=== PATIENT | female | born 2000 | race Caucasian/White ===

== ENCOUNTER 2024-03-28 07:58 | Observation (INO) | payer SELFPAY ==
[2024-03-28] MEDS ORDERED: Acetaminophen 325 MG TAB PO PRN (09:18)
[2024-03-28] MEDS ORDERED: Ondansetron PF 4 MG/2 ML Vial IVP PRN (09:18)
[2024-03-28] MEDS ORDERED: traMADol HCl 50 MG TAB PO PRN (09:18)
[2024-03-28 10:08] LABS: CRP,High Sensitivity (Inhouse) 0.87 mg/dL (< or = 0.5)
[2024-03-28 10:09] LABS: ALT (SGPT) 703 U/L (8-55); AST (SGOT) 336 U/L (5-34); Albumin 3.5 g/dL (3.5-5.0); Alkaline Phosphatase 499 U/L (40-110); Anion Gap 16 mmol/L (10-20); BUN (Urea Nitrogen) 7 mg/dL (7.0-18.7); Bilirubin, Total 4.1 mg/dL (0.2-1.2); Calc. Creatinine Clearance 0 mL/min (70-130); Calcium 8.6 mg/dL (7.8-10.44); Carbon Dioxide 22 mmol/L (22-29); Chloride 106 mmol/L (98-107); Estimated GFR 135; Globulin 3.2 g/dL (2.4-3.5); Glucose 131 mg/dL (70-105); Hematocrit 36.7 % (36.0-47.0); Hemoglobin 12.5 g/dL (12.0-16.0); Mean Corpuscular HGB CONC 34.1 g/dL (32.0-36.0); Mean Corpuscular Hemoglobin 27.5 pg (27.0-31.0); Mean Corpuscular Volume 80.7 fL (78.0-98.0); Mean Platelet Volume 10.5 fL (7.4-10.4); Platelet Count 170 10x3/uL (130-400); Potassium 3.9 mmol/L (3.5-5.1); Protein, Total 6.7 g/dL (6.0-8.3); Red Blood Cell (RBC) Count 4.55 mill/uL (4.20-5.40); Sodium 140 mmol/L (136-145)
[2024-03-28] MEDS: Sodium Chloride 0.9% 1,000 ML IV SCH (10:27)
[2024-03-28 10:31] LABS: HBsAg Index 0.19 S/CO (0-0.99); Hep A IgM AB NONREACTIVE (NonReactive); Hep A IgM S/CO 0.24 S/CO (0-0.79); Hep B Surf Ag NONREACTIVE S/CO (NonReactive); Hep C IgG Ab NONREACTIVE S/CO (NonReactive); Hepatitis B Core IgM Abs NONREACTIVE S/CO (NonReactive)
[2024-03-28 12:50] LABS: Anisocytosis SLIGHT = 6-15 cells HPF (0-5); Band 8 % (5-11); Burr Cells SLIGHT = 2-5 cells HPF (0-1); Large Platelets 12.5 % (0-5); Lymphocytes 32 % (21-51); Monocytes 6 % (0-10); Neutrophil 28 % (42-75); Other Cell Types 4.8; Platelet Adequacy Comment Platelets Normal; Reactive Lymphocytes 22 % (0-10); Smudge Cells 38.5 %
[2024-03-28 15:08] VITALS: BMI 20.4
[2024-03-28] MEDS: Benzocaine/Menthol 1 LOZ LOZ PO PRN (15:35)
[2024-03-29 06:17] LABS: ALT (SGPT) 512 U/L (8-55); AST (SGOT) 223 U/L (5-34); Albumin 2.9 g/dL (3.5-5.0); Alkaline Phosphatase 372 U/L (40-110); Anion Gap 10 mmol/L (10-20); BUN (Urea Nitrogen) Less than 4 mg/dL (7.0-18.7); Bilirubin, Total 2.4 mg/dL (0.2-1.2); Calc. Creatinine Clearance 146 mL/min (70-130); Calcium 7.9 mg/dL (7.8-10.44); Carbon Dioxide 27 mmol/L (22-29); Chloride 107 mmol/L (98-107); Estimated GFR 135; Globulin 2.6 g/dL (2.4-3.5); Glucose 105 mg/dL (70-105); Potassium 3.1 mmol/L (3.5-5.1); Protein, Total 5.5 g/dL (6.0-8.3); Sodium 141 mmol/L (136-145)
[2024-03-29 06:36] LABS: Hemoglobin 11.2 g/dL (12.0-16.0); Mean Corpuscular HGB CONC 32.9 g/dL (32.0-36.0); Mean Corpuscular Hemoglobin 27.1 pg (27.0-31.0); Mean Corpuscular Volume 82.1 fL (78.0-98.0); Platelet Count 155 10x3/uL (130-400); RBC Distribution Width 13.2 % (11.5-14.5); Red Blood Cell (RBC) Count 4.14 mill/uL (4.20-5.40)
[2024-03-29 07:25] LABS: Anisocytosis SLIGHT = 6-15 cells HPF (0-5); Band 1 % (5-11); Burr Cells SLIGHT = 2-5 cells HPF (0-1); Eosinophils 1 % (0-10); Lymphocytes 54 % (21-51); Monocytes 11 % (0-10); Neutrophil 27 % (42-75); Platelet Adequacy Comment Platelets Normal; Polychromasia SLIGHT = 2-3 cells HPF (0-2); Reactive Lymphocytes 7 % (0-10); Smudge Cells 30.7 %
[2024-03-29] MEDS: Potassium Chloride 20 MEQ TAB PO SCH ×2 (14:52→16:48)
[2024-03-29 17:48] VITALS: BP 123/75; TEMP 98.2
== END 2024-03-29 18:50 | disposition home or self-care (01) ==
LOC: T4-A 08:20 → INTOOBSV 08:20
PROVIDERS: ADMIT Internal Medicine; ATTEND Internal Medicine
DX: R10.12 Left upper quadrant pain (principal); J10.1 Influenza due to other identified influenza virus with other respiratory manifestations; E80.6 Other disorders of bilirubin metabolism; R74.01 Elevation of levels of liver transaminase levels; Z88.1 Allergy status to other antibiotic agents
CPT/HCPCS: 36415; 80053; 80074; 85025; 86141; G0378; J7030